=== PATIENT | female | born 1965 | race Caucasian/White ===

== ENCOUNTER 2016-09-10 14:54 | Inpatient (IN) | payer OTHER ==
[~2016-09-10] VITALS: Ht 157.5 cm; Wt 131.5 kg
--- NOTE | ~2016-09-10 | EKG ---
[address] [place] [address] ELECTROCARDIOGRAM REPORT Name: FARZANAARNOLD Room #: 213-P ADM IN M.R.#: [id number] Admission: 09/10/16 Attend Phys: Alek Jameson Discharge: Date of : 69 Report #: [id number] THIS REPORT FOR: //name// [facility] ED Test Date: 2016-09-10 Test Time: 15:03:25 Pat Name: ARNOLD YANES Department: Room: 213 Gender: F Quality Control Director: TESSA : 1965 Requested By: Armand Acosta Order Number: [id number] MD: Aamir Hills Measurements Intervals [place] Rate: 93 P: 33 [place]: 149 QRS: 58 QRSD: 92 T: 5 QT: 339 QTc: 422 Interpretive Statements Sinus rhythm Borderline T abnormalities Compared to ECG 10/17/2013 08:44:22 T-wave abnormality less pronounced Electronically Signed On 09-12-2016 13:16:45 CDT by Aamir Hills [email or web address] <ELECTRONICALLY SIGNED> By: Aamir Hills MD, [facility] 09/12/16 1316 1503 150 Aamir Hills MD, [facility] /EPI
--- NOTE | ~2016-09-10 | 2DMMODE ---
[facility] [address] [place] [address] 2 D/M-MODE ECHOCARDIOGRAM Name: FARZANAARNOLD NADIYA Room #: 213-P ADM IN M.R.#: [id number] Admission: 09/10/16 Attend Phys: Alek Kline Discharge: Date of : 69 Date of Service: 09/13/16 1039 Report #: [id number] THIS REPORT FOR: //name// APPROVED REPORT Study performed: 09/13/2016 08:33:23 EXAM: Comprehensive 2D, Doppler, and color-flow Echocardiogram Patient Location: Bedside Room #: 213 Status: routine Other Information Study Quality: Fair Risk Factors: Cardiac Risk Factors: HTN, DM, Smoking, SOB Indications COPD Diabetes Dyspnea Hypertension/HDD Morbid obesity. 2D Dimensions LVEF(%): 53.17 (>50%) IVSd: 12.24 (7-11mm) LVOT Diam: 21.35 (18-24mm) LVDd: 45.82 mm PWd: 12.34 (7-11mm) Ascending Ao: 29.96 (22-36mm) LVDs: 33.32 (25-40mm) Aortic Root: 32.74 mm Huerta's LVEF: 53.17 % Aortic Valve AoV Peak Cristi.: 1.94 m/s AO Peak Gr.: 15.11 mmHg LVOT Max P.55 mmHg LVOT Max V: 1.28 m/s MARIA GUADALUPE Vmax: 2.36 cm2 Mitral Valve E/A Ratio: 1.5 MV Decel. Time: 234.55 ms MV E Max Cristi.: 1.13 m/s [facility] [address] [place] [address] 2 D/M-MODE ECHOCARDIOGRAM Name: FARZANAARNOLD NADIYA Room #: 213-P ADM IN [facility]#: [id number] Admission: 09/10/16 Attend Phys: Alek Kline Discharge: Date of : 69 Date of Service: 09/13/16 1039 Report #: [id number] MV A Cristi.: 0.77 m/s MV PHT: 68.02 ms IVRT: 92.27 ms Pulmonary Valve PV Peak Cristi.: 1.25 m/s PV Peak Gr.: 6.23 mmHg Pulmonary Vein P Vein S: 0.35 m/s P Vein A: 0.31 m/s P Vein D: 0.17 m/s P Vein A Dur.: 124.6 msec P Vein S/D Ratio: 2.06 Tricuspid Valve TR Peak Cristi.: 2.98 m/s TR Peak Gr.: 35.42 mmHg PA Pressure: 35.00 mmHg Left Ventricle The left ventricle is normal size. Mild concentric left ventricular hypertrophy. The left ventricular systolic function is normal. The left ventricular ejection fraction is within the normal range. LVEF is 55-60%. Grade II - pseudonormal filling dynamics. Right Ventricle The right ventricle is normal size. The right ventricular systolic function is normal. Atria The left atrium size is normal. The right atrium size is normal. Aortic Valve The aortic valve is normal in structure. Aortic valve is calcified. No aortic regurgitation is present. There is no aortic valvular stenosis. Mitral Valve The mitral valve is normal in structure. Trace mitral regurgitation. No evidence of mitral valve stenosis. Tricuspid Valve The tricuspid valve is normal in structure. There is no tricuspid valve stenosis. There is mild tricuspid regurgitation. The right atrial pressure is estimated at mmHg. There is mild pulmonary hypertension. The estimated PAP was 35 mmHg plus the right atrial pressure. [facility] [address] [place] [address] 2 D/M-MODE ECHOCARDIOGRAM Name: ARNOLD YANES [facility] Room #: 213-P [facility] IN .R.#: [id number] Admission: 09/10/16 Attend Phys: Alek Kline Discharge: Date of : 69 Date of Service: 09/13/16 1039 Report #: [id number] Pulmonic Valve The pulmonary valve is normal in structure. Great Vessels The aortic root is normal in size. IVC is not well visualized. Pericardium There is no pericardial effusion. <Conclusion> The left ventricle is normal size. Mild concentric left ventricular hypertrophy. The left ventricular systolic function is normal. Grade II - pseudonormal filling dynamics. The right ventricle is normal size. The left atrium size is normal. There is no aortic valvular stenosis. Trace mitral regurgitation. There is mild tricuspid regurgitation. The right atrial pressure is estimated at mmHg. There is mild pulmonary hypertension. The estimated PAP was 35 mmHg plus the right atrial pressure. There is no pericardial effusion. <ELECTRONICALLY SIGNED> By: David Tidwell MD 09/13/16 1039 1039 1039 David Tidwell MD /INF
[~2016-09-10 14:54] MED LIST: ADVAIR HFA 115-12 GM INH; CARVEDILOL12.5 MG PO; CARVEDILOL6.25 MG PO; CEFUROXIME250 MG PO; IPRAT-ALBUT 0.5-3 ML INH; LASIX 40 MG TAB40 M2 PO; LEVEMIR100 UNIT/1 SUBQ; MUCINEX TA600 MG/TA2 PO; NICOTINE PATCH1 EAC1 TRANSDERM; NICOTINE PATCH1 EACH TRANSDERM; NICOTINE TRANSD14 M1 TRANSDERM; NOVOLOG100 UNIT/1 SUBQ; NYSTATIN 1100000 U/M SWISH&SPIT; PREDNISONE 10 M10 MG PO; PREDNISONE 20 M20 MG; PRINIVIL5 MG PO; SPIRONOLACTONE25 M1 PO; TRAMADOL 50 MG50 MG PO; TYLENOL325 MG PO
[2016-09-10 14:55] VITALS: BP 122/80
[2016-09-10 16:13] LABS: ABG SAMPLE TYPE ARTERIAL; BE(vivo) 3.4 mmol/L (-2 to +3); HCO3 31.3 mmol/L (22.0-26.0); O2(CT) 17.8 mL/dL (15.0-23.0); O2Hb 92.6 % (92.0-98.0); PCO2 63.4 mmHg (35.0-45.0); PO2 89.2 mmHg (80.0-100.0); sO2 95.8 % (92.0-98.0); tCO2 33.3 mmol/L (24.0-30.0)
[2016-09-10 16:14] LABS: STICK SITE R.RADIAL; pH 7.312 (7.360-7.450)
[2016-09-10 16:17] LABS: ABSOLUTE NEUTROPHILS 7.1 thou/uL (1.4-8.2); BASOPHILS 0.6 % (0.0-2.0); EOSINOPHILS 1.3 % (0.0-3.0); HEMATOCRIT 40.3 % (37.0-47.0); HEMOGLOBIN 12.9 gm/dL (12.0-15.0); LYMPHOCYTES 20.5 % (24.0-44.0); MCH 29.4 pg (26.0-34.0); MCHC 31.9 g/dL (28.0-37.0); MONOCYTES 7.6 % (1.0-8.0); PLATELET COUNT 277 thou/uL (150-400); RBC 4.38 mil/uL (4.20-5.00); RDW 16.5 % (10.5-14.5); WBC 10.2 thou/uL (4.0-11.0)
[2016-09-10 16:22] LABS: MANUAL DIFF NO
[2016-09-10 16:29] LABS: CALCIUM 9.1 mg/dL (8.5-10.1); CREATININE 1.5 mg/dL (0.6-1.0)
[2016-09-10 16:40] LABS: ALBUMIN 3.6 g/dL (3.4-5.0); TOTAL BILIRUBIN 0.3 mg/dL (<0.1-1.0); TOTAL PROTEIN 7.8 g/dL (6.4-8.2); TROPONIN-I 0.04 ng/mL (<0.04-0.07)
[2016-09-10 16:59] LABS: HIV-1 P24 AG Nonreactive (Nonreactive)
[2016-09-10] MEDS ORDERED: ZANTAC 150MG T150 MG PO (17:07)
[2016-09-10] MEDS ORDERED: VALIUM5 MG PO (17:08)
[2016-09-10] MEDS ORDERED: METFORMIN HCL500 MG PO (17:09)
[2016-09-10] MEDS ORDERED: FENOFIBRATE160 MG PO (17:10)
[2016-09-10] MEDS ORDERED: PROAIR HFA8.5 GM INH (17:13)
[2016-09-10 19:11] VITALS: BP 119/64
[2016-09-10 20:17] VITALS: BP 116/66
[2016-09-10 23:02] LABS: ABG SAMPLE TYPE ARTERIAL; BE(vivo) 2.3 mmol/L (-2 to +3); LACTATE 1.15 mmol/L (0.5-2.0); O2(CT) 18.3 mL/dL (15.0-23.0); O2Hb 92.8 % (92.0-98.0); PCO2 67.5 mmHg (35.0-45.0); PO2 82.2 mmHg (80.0-100.0); STICK SITE R.RADIAL; sO2 94.4 % (92.0-98.0); tCO2 33.1 mmol/L (24.0-30.0)
[2016-09-10 23:03] LABS: Pressure Support 6 cm H20
[2016-09-10 23:10] LABS: HBsAG-EMPLOYEE EXPOSURE Negative (Negative); HCV AB-EMPLOYEE EXPOSURE <0.1 (0.0-0.9)
[2016-09-10 23:51] VITALS: BP 139/81
[2016-09-11 03:43] VITALS: BP 126/74
[2016-09-11 05:42] LABS: ABG SAMPLE TYPE ARTERIAL; BE(vivo) 3.6 mmol/L (-2 to +3); HCO3 29.7 mmol/L (22.0-26.0); LACTATE 1.51 mmol/L (0.5-2.0); O2(CT) 17.7 mL/dL (15.0-23.0); O2Hb 94.4 % (92.0-98.0); PCO2 50.9 mmHg (35.0-45.0); PO2 82.7 mmHg (80.0-100.0); Pressure Support 8 cm H20; STICK SITE R.RADIAL; pH 7.384 (7.360-7.450); sO2 95.9 % (92.0-98.0); tCO2 31.3 mmol/L (24.0-30.0)
[2016-09-11 07:18] VITALS: BP 116/83
[2016-09-11 11:28] VITALS: BP 119/69
[2016-09-11 16:00] VITALS: BP 135/72
[2016-09-11 19:39] VITALS: BP 116/66
[2016-09-12 03:30] VITALS: BP 106/68
[2016-09-12 07:34] VITALS: BP 123/86
[2016-09-12 11:41] VITALS: BP 118/73
[2016-09-12 15:55] VITALS: BP 104/58
[2016-09-12 19:22] VITALS: BP 147/87
[2016-09-13 03:16] VITALS: BP 121/70
[2016-09-13 07:26] VITALS: BP 130/84
[2016-09-13 11:49] VITALS: BP 125/72
[2016-09-13 12:45] VITALS: BP 125/72
[2016-09-13 20:23] VITALS: BP 136/83
[2016-09-14 07:10] LABS: HEMATOCRIT 41.1 % (37.0-47.0); MCH 29.1 pg (26.0-34.0); MCHC 31.7 g/dL (28.0-37.0); MCV 91.9 fL (80.0-100.0); PLATELET COUNT 293 thou/uL (150-400); RBC 4.47 mil/uL (4.20-5.00); RDW 16.3 % (10.5-14.5); WBC 11.5 thou/uL (4.0-11.0)
[2016-09-14 07:16] LABS: MANUAL DIFF YES
[2016-09-14 07:57] LABS: POTASSIUM 5.4 mmol/L (3.5-5.1)
[2016-09-14 08:21] LABS: ABSOLUTE NEUTROPHILS 9.4 thou/uL (1.4-8.2); ANISOCYTOSIS 1+; TOTAL CELL COUNT 100
[2016-09-14 09:10] VITALS: BP 134/75
[2016-09-14 13:06] VITALS: BP 129/54
[2016-09-14 15:52] VITALS: BP 151/79
[2016-09-14 19:25] VITALS: BP 139/80
[2016-09-15 03:34] VITALS: BP 155/82
[2016-09-15 07:58] VITALS: BP 154/86
[2016-09-15 10:42] LABS: ABSOLUTE NEUTROPHILS 9.8 thou/uL (1.4-8.2); BASOPHILS 0.3 % (0.0-2.0); EOSINOPHILS 0.1 % (0.0-3.0); HEMATOCRIT 43.1 % (37.0-47.0); HEMOGLOBIN 13.8 gm/dL (12.0-15.0); MCH 29.2 pg (26.0-34.0); MCV 91.3 fL (80.0-100.0); MONOCYTES 6.2 % (1.0-8.0); PLATELET COUNT 312 thou/uL (150-400); POLYS 83.4 % (36.0-66.0); RBC 4.71 mil/uL (4.20-5.00); WBC 11.8 thou/uL (4.0-11.0)
[2016-09-15 10:43] LABS: MANUAL DIFF NO
[2016-09-15 10:49] LABS: ANION GAP < 0 mmol/L (7-16); BUN 28 mg/dL (7-18); CHLORIDE 100 mmol/L (98-107); CO2 37 mmol/L (21-32); GLUCOSE 171 mg/dL (74-106); POTASSIUM 4.6 mmol/L (3.5-5.1); SODIUM 136 mmol/L (136-145)
[2016-09-15 11:54] VITALS: BP 127/72
[2016-09-15 16:00] VITALS: BP 155/92
[2016-09-15 19:26] VITALS: BP 109/66
[2016-09-16 03:30] LABS: ABSOLUTE NEUTROPHILS 9.4 thou/uL (1.4-8.2); BASOPHILS 0.1 % (0.0-2.0); EOSINOPHILS 0.1 % (0.0-3.0); HEMATOCRIT 43.9 % (37.0-47.0); HEMOGLOBIN 13.9 gm/dL (12.0-15.0); LYMPHOCYTES 12.1 % (24.0-44.0); MCHC 31.6 g/dL (28.0-37.0); MCV 91.8 fL (80.0-100.0); MONOCYTES 5.3 % (1.0-8.0); PLATELET COUNT 292 thou/uL (150-400); POLYS 82.4 % (36.0-66.0); RBC 4.78 mil/uL (4.20-5.00); WBC 11.4 thou/uL (4.0-11.0)
[2016-09-16 03:35] LABS: MANUAL DIFF NO
[2016-09-16 03:38] VITALS: BP 117/63
[2016-09-16 08:03] VITALS: BP 148/85
[2016-09-16 11:51] VITALS: BP 157/78
[2016-09-16 13:41] VITALS: BP 157/78
[2016-09-16 15:56] VITALS: BP 118/67
[2016-09-16] MEDS ORDERED: NEXIUM40 MG PO (16:24)
[2016-09-16] MEDS ORDERED: PREDNISONE 20 M20 MG PO (16:24)
[2016-09-16] MEDS ORDERED: LEVAQUIN 500 M500 M2 PO (16:24)
[2016-09-16 16:27] VITALS: BP 157/78
[2016-09-16] MEDS ORDERED: PROBIOTIC1 EAC1 PO (16:27)
== END 2016-09-16 19:03 | disposition home or self-care (01) | DRG 291 ==
LOC: ER 14:54 → EROBS 17:12 → 2N 17:12
PROVIDERS: Hospitalist; Internal Medicine Endocrinology, Diabetes & Metabolism; Internal Medicine Pulmonary Disease; Physician Assistant
PROC: 5A09457 Assistance with Respiratory Ventilation, 24-96 Consecutive Hours, Continuous Positive Airway Pressure (ICD-10-PCS; principal; 2016-09-13)
DX: I11.0 Hypertensive heart disease with heart failure (principal); J96.21 Acute and chronic respiratory failure with hypoxia; K72.00 Acute and subacute hepatic failure without coma; J96.22 Acute and chronic respiratory failure with hypercapnia; J44.1 Chronic obstructive pulmonary disease with (acute) exacerbation; Z68.43 Body mass index [BMI] 50.0-59.9, adult; N17.9 Acute kidney failure, unspecified; I50.20 Unspecified systolic (congestive) heart failure; I42.9 Cardiomyopathy, unspecified; G47.33 Obstructive sleep apnea (adult) (pediatric); F17.210 Nicotine dependence, cigarettes, uncomplicated; E87.5 Hyperkalemia; E11.9 Type 2 diabetes mellitus without complications; E66.01 Morbid (severe) obesity due to excess calories; Z79.899 Other long term (current) drug therapy; Z88.6 Allergy status to analgesic agent; Z79.4 Long term (current) use of insulin; Z71.6 Tobacco abuse counseling
CPT/HCPCS: 10081